=== PATIENT | male | born 1995 | race Caucasian/White ===

== ENCOUNTER 2019-05-28 13:11 | Inpatient (IN) | payer BC, OTHER ==
--- NOTE | 2019-05-28 13:19 | PDOC ---
Rapid Medical Evaluation Chief Complaint: Respiratory Time Seen by Provider: 05/28/19 13:18 Medical Evaluation: Allergies Allergy/AdvReac Type Severity Reaction Status Date / Time amoxicillin [Amoxicillin] Allergy Unknown Verified 09/07/15 11:10 Penicillins Allergy Unknown Verified 06/14/15 10:17 05/28/19 13:18 I have performed a brief in-person evaluation of this patient. The patient presents with a chief complaint of: fever and sacral wound Pertinent physical exam findings: deferred I have ordered the following: sepsis w/u The patient will proceed to the ED for further evaluation. Discharge Disposition - Diagnosis Decubital ulcer - Referrals - Patient Instructions - Post Discharge Activity
[2019-05-28 14:09] LABS: BASO % 0.4 % (0-2.0); EOS % 1.4 % (0-4.5); HEMATOCRIT 29.9 % (35.4-49); HEMOGLOBIN 9.8 GM/dL (11.7-16.9); LYMPH % 12.5 % (8-40); MCH 24.1 pg (25.7-33.7); MCHC 32.8 g/dl (32.0-35.9); MEAN CELL VOLUME 73.4 fl (80-96); MEAN PLT VOLUME 7.3 fl (7.5-11.1); MONO % 7.3 % (3.8-10.2); NEUT % 78.4 % (42.8-82.8); PLATELET COUNT 557 K/MM3 (134-434); RBC 4.07 M/mm3 (4.00-5.60); RDW 16.5 % (11.9-15.9); WHITE BLOOD COUNT 13.4 K/mm3 (4.0-10.0)
[2019-05-28 14:36] LABS: INR 1.24 (0.83-1.09); PROTHROMBIN TIME (PATIENT) 14.7 SEC (9.7-13.0)
[2019-05-28 14:39] LABS: ACTIVATED PTT 37.8 SECONDS (25.2-36.5); ALBUMIN 2.7 g/dl (3.4-5.0); ALK PHOS 79 U/L (45-117); ANION GAP 12 MMOL/L (8-16); BILIRUBIN,TOTAL 0.6 mg/dL (0.2-1); CALCIUM 8.3 mg/dL (8.5-10.1); CHLORIDE 96 mmol/L (98-107); CO2 26 mmol/L (21-32); CREATININE 0.5 mg/dL (0.55-1.3); GLUCOSE,RANDOM 84 mg/dL (74-106); POTASSIUM 3.8 mmol/L (3.5-5.1); SGOT/AST 15 U/L (15-37); SGPT/ALT 11 U/L (13-61); SODIUM 135 mmol/L (136-145)
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
[2019-05-28] MEDS ORDERED: ACETAMINOPHEN 1000 MG/100 ML VIAL (NON FORMULARY) IVPB ONE (15:15)
[2019-05-28] MEDS ORDERED: LACTATED RINGERS SOLUTION 1000 ML INFUS.BAG IV ONE (15:15)
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
[2019-05-28] MEDS ORDERED: ACETAMINOPHEN INJECTION 100 ML IVPB ONE (15:35)
[2019-05-28] MEDS ORDERED: VANCOMYCIN 1 GRAM (PRE-DOCKED) 1,000 MG/250 ML BAG IVPB ONE ×2 (16:18→17:18)
[2019-05-28] MEDS ORDERED: AZTREONAM 1 GM in DEXTROSE 5%-WATER - 50 ML IVPB ONE (16:18)
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
[2019-05-28 16:58] LABS: EPI CELLS 17.5 /HPF (0-5/HPF); HYALINE CASTS 172 /lpf (0-8); PH,URINE >= 9.0 (5.0-8.0); URINE APPEARANCE TURBID; URINE BACTERIA 5240.1 /hpf (NEGATIVE); URINE BILIRUBIN NEGATIVE (NEGATIVE); URINE COLOR YELLOW; URINE GLUCOSE (UA) NEGATIVE (NEGATIVE); URINE KETONE NEGATIVE (NEGATIVE); URINE LEUK ESTERASE TRACE (NEGATIVE); URINE NITRITE NEGATIVE (NEGATIVE); URINE PROTEIN 1+ (NEGATIVE); URINE RBC 10 /hpf (0-4); URINE UROBILINOGEN 4.0 E.U/dl mg/dL (0.2-1.0); URINE WBC 6 /hpf (0-5)
[2019-05-28] MEDS: SODIUM CHLORIDE 1,000 ML IV SCH (17:12)
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
[2019-05-28 17:58] LABS: URINE CRYSTALS AMORPHOUS PHOSPHATES /hpf
[2019-05-28] MEDS ORDERED: oxyCODONE HCL 5 MG TABLET PO ONE (21:04)
[2019-05-28] MEDS: ACETAMINOPHEN 325 MG TABLET (FP) PO PRN (21:33)
[2019-05-28] MEDS: HEPARIN NA (PORCINE) 5,000 UNITS/ML 1ML VIAL SQ SCH (21:38)
[2019-05-29] MEDS ORDERED: DEXTROSE 5%-WATER - 50 ML IVPB ONE ×3 (01:27→21:45)
[2019-05-29] MEDS ORDERED: AZTREONAM 1 GM VIAL (RESTRICTED TO ID) ONE ×3 (01:27→21:45)
[2019-05-29] MEDS: AZTREONAM 1 GM in DEXTROSE 5%-WATER - 50 ML IVPB SCH ×2 (01:37→10:45)
[2019-05-29] MEDS: VANCOMYCIN 1 GRAM (PRE-DOCKED) 1,000 MG/250 ML BAG IVPB SCH ×2 (05:51→23:05)
[2019-05-29] MEDS: SODIUM CHLORIDE 1,000 ML IV SCH ×2 (05:54→16:52)
[2019-05-29] MEDS: FERROUS SO4 325 MG TABLET (FP) PO SCH ×3 (09:07→18:23)
--- NOTE | 2019-05-29 09:16 | PN ---
Progress Note, Physician Chief Complaint: AWAKE ALERT EVENTS AND NOTES REVIEWED - Current Medication List Current Medications: Active Medications Acetaminophen (Tylenol -) 650 mg PO Q6H PRN PRN Reason: FEVER Last Admin: 05/28/19 21:33 Dose: 650 mg Collagenase (Santyl -) 1 applic TP DAILY [facility]; Protocol Ferrous Sulfate (Feosol -) 325 mg PO BIDWM [facility] Last Admin: 05/29/19 09:07 Dose: 325 mg Heparin Sodium (Porcine) (Heparin -) 5,000 unit SQ BID [facility] Last Admin: 05/28/19 21:38 Dose: 5,000 unit Sodium Chloride (Normal Saline -) 1,000 mls @ 75 mls/hr IV ASDIR [facility] Last Admin: 05/29/19 05:54 Dose: 75 mls/hr Aztreonam 1 gm/ Dextrose 50 mls @ 100 mls/hr IVPB Q8H-IV [facility]; Protocol Last Admin: 05/29/19 01:37 Dose: 100 mls/hr Metronidazole (Flagyl 500mg Premixed Ivpb -) 500 mg in 100 mls @ 100 mls/hr IVPB Q8H-IV [facility] Last Admin: 05/29/19 09:08 Dose: 100 mls/hr Vancomycin HCl (Vancomycin (Pre-Docked)) 1,000 mg in 250 mls @ 166.667 mls/hr IVPB Q12H [facility]; Protocol Last Admin: 05/29/19 05:51 Dose: 166.667 mls/hr - Objective Vital Signs: Vital Signs Temperature 97.2 F L 05/29/19 06:00 Pulse Rate 50 L 05/29/19 06:00 Respiratory Rate 18 05/29/19 06:00 Blood Pressure 96/56 L 05/29/19 06:00 O2 Sat by Pulse Oximetry (%) 100 05/28/19 22:00 Constitutional: Yes: Mild Distress Cardiovascular: Yes: Regular Rate and Rhythm Respiratory: Yes: WNL Gastrointestinal: Yes: WNL Genitourinary: Yes: Other Musculoskeletal: Yes: Muscle Weakness Extremities: Yes: Other Edema: No Integumentary: Yes: Pressure Ulcer, Other (MULTIPLE ULCERS SACRAL AND RIGHT LOWER EXTREMITY COVERED WITH DRESSING) Neurological: Yes: Paresthesia, Pre-Existing Deficit, Weakness ...Motor Strength: LLE, RLE Psychiatric: Yes: Other Labs: CBC, BMP 05/28/19 13:50 05/28/19 13:50 INR, PTT INR 1.24 (0.83-1.09) H 05/28/19 13:50 Problem List - Problems (1) Decubital ulcer Code(s): L89.90 - PRESSURE ULCER OF UNSPECIFIED SITE, UNSPECIFIED STAGE Qualifiers: Pressure injury location: unspecified location Pressure injury stage: unspecified pressure injury stage Qualified Code(s): L89.90 - Pressure ulcer of unspecified site, unspecified stage (2) Paraplegia Code(s): G82.20 - PARAPLEGIA, UNSPECIFIED Assessment/Plan FAILED ON OUTPATIENT WOUND CARE ON IV ABX WILL NEED WOUND CARE AND VASC SX EVAL OPTIMIZE NUTRITION FOR BETTER WOUND HEALING OFFLOADING WITH PILLOWS
[2019-05-29 09:31] LABS: BASO % 0.8 % (0-2.0); EOS % 4.7 % (0-4.5); HEMATOCRIT 29.3 % (35.4-49); HEMOGLOBIN 9.3 GM/dL (11.7-16.9); LYMPH % 17.1 % (8-40); MCH 23.8 pg (25.7-33.7); MCHC 31.9 g/dl (32.0-35.9); MEAN CELL VOLUME 74.7 fl (80-96); MEAN PLT VOLUME 7.8 fl (7.5-11.1); MONO % 7.4 % (3.8-10.2); PLATELET COUNT 551 K/MM3 (134-434); RBC 3.92 M/mm3 (4.00-5.60); RDW 16.2 % (11.9-15.9); WHITE BLOOD COUNT 7.6 K/mm3 (4.0-10.0)
[2019-05-29 10:01] LABS: ALBUMIN 2.3 g/dl (3.4-5.0); BILIRUBIN,TOTAL 0.3 mg/dL (0.2-1); BLOOD UREA NITROGEN 7.3 mg/dL (7-18); CALCIUM 8.3 mg/dL (8.5-10.1); CREATININE 0.4 mg/dL (0.55-1.3); MAGNESIUM 2.2 mg/dL (1.8-2.4); POTASSIUM 3.8 mmol/L (3.5-5.1); TOT PROT 6.3 g/dl (6.4-8.2)
--- NOTE | 2019-05-29 10:06 | PN ---
Progress Note (short form) - Note Progress Note: ID consult dictated afebrile today sacral wounds stage four but clean no drainage, no cellulitis, + drainage from right heel ulcer- eschar removed at wound care yesterday a/p fevers paraplegia ?infected wounds no recent antibiotics pen allergy noted swelling per grandmother as baby started on vanco/azactam will add flagyl sacral ulcers appear clean sugery to evaluate heel ulcer f/u esr/crp
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
[2019-05-29] MEDS: HEPARIN NA (PORCINE) 5,000 UNITS/ML 1ML VIAL SQ SCH ×2 (10:44→21:49)
[2019-05-29] MEDS ORDERED: ACETAMINOPHEN 1000 MG/100 ML VIAL (NON FORMULARY) IVPB PRN (11:15)
[2019-05-29] MEDS: COLLAGENASE CLOSTRIDIUM HIST. 30 GRAMS TUBE TP SCH (11:41)
--- NOTE | 2019-05-29 14:12 | EKG ---
Test Reason : Blood Pressure : / mmHG Vent. Rate : 101 BPM Atrial Rate : 101 BPM P-R Int : 140 ms QRS Dur : 102 ms QT Int : 326 ms P-R-T Axes : 066 007 037 degrees QTc Int : 422 ms SINUS TACHYCARDIA RIGHT BUNDLE BRANCH BLOCK NONSPECIFIC T WAVE ABNORMALITY ABNORMAL ECG WHEN COMPARED WITH ECG OF 07-SEP-2015 12:16, NO SIGNIFICANT CHANGE WAS FOUND Confirmed by TO GAMBOA MD ([id number]) on 05/29/2019 2:12:03 PM Referred By: Confirmed By:TO GAMBOA MD
[2019-05-29 14:41] VITALS: BMI 18.4
[2019-05-29] MEDS: oxyCODONE HCL 5 MG TABLET PO PRN ×2 (15:26→23:41)
[2019-05-29] MEDS ORDERED: FERRIC CARBOXYMALTOSE 750 MG in SODIUM CHLORIDE 250 ML IVPB ONE (15:30)
--- NOTE | 2019-05-29 16:41 | PN ---
Progress Note (short form) - Note Progress Note: VAscular Surgery Pt seen and examined. Right heel ulcer dressing removed. Wound probes to bone. And is painful. Pt has palpable DP and PT pulses. Will get MRI of right foot to rule out osteo. Geo Mcdonnell DO
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
[2019-05-29] MEDS: ACETAMINOPHEN 325 MG TABLET (FP) PO PRN (23:41)
[2019-05-30] MEDS: MELATONIN 1 MG TABLET PO SCH ×3 (00:25→21:30)
[2019-05-30] MEDS: AZTREONAM 1 GM in DEXTROSE 5%-WATER - 50 ML IVPB SCH ×4 (01:08→17:02)
[2019-05-30] MEDS ORDERED: DEXTROSE 5%-WATER - 50 ML IVPB ONE ×3 (02:28→16:50)
[2019-05-30] MEDS ORDERED: AZTREONAM 1 GM VIAL (RESTRICTED TO ID) ONE ×3 (02:28→16:50)
[2019-05-30] MEDS ORDERED: ONDANSETRON *ODT* 4 MG TABLET SL ONE (03:55)
[2019-05-30] MEDS: VANCOMYCIN 1 GRAM (PRE-DOCKED) 1,000 MG/250 ML BAG IVPB SCH ×2 (05:41→17:31)
[2019-05-30] MEDS: ONDANSETRON 4 MG/2 ML VIAL IVPB PRN ×2 (05:41→17:28)
[2019-05-30 08:08] LABS: HEMATOCRIT 29.2 % (35.4-49); HEMOGLOBIN 9.5 GM/dL (11.7-16.9); MCH 24.3 pg (25.7-33.7); MCHC 32.6 g/dl (32.0-35.9); MEAN CELL VOLUME 74.5 fl (80-96); MEAN PLT VOLUME 7.3 fl (7.5-11.1); PLATELET COUNT 548 K/MM3 (134-434); RBC 3.92 M/mm3 (4.00-5.60); RDW 16.5 % (11.9-15.9); WHITE BLOOD COUNT 7.1 K/mm3 (4.0-10.0)
[2019-05-30 08:25] LABS: BLOOD UREA NITROGEN 4.5 mg/dL (7-18); CALCIUM 8.4 mg/dL (8.5-10.1); CREATININE 0.5 mg/dL (0.55-1.3); MAGNESIUM 2.1 mg/dL (1.8-2.4); POTASSIUM 3.4 mmol/L (3.5-5.1)
[2019-05-30] MEDS: FERROUS SO4 325 MG TABLET (FP) PO SCH ×2 (08:34→17:02)
[2019-05-30] MEDS: HEPARIN NA (PORCINE) 5,000 UNITS/ML 1ML VIAL SQ SCH ×2 (09:01→21:24)
[2019-05-30] MEDS: COLLAGENASE CLOSTRIDIUM HIST. 30 GRAMS TUBE TP SCH (10:10)
[2019-05-30] MEDS: oxyCODONE HCL 5 MG TABLET PO PRN (10:13)
[2019-05-30] MEDS: SODIUM CHLORIDE 1,000 ML IV SCH (10:29)
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
[2019-05-30] MEDS ORDERED: POTASSIUM CHLORIDE ORAL LIQUID 20 MEQ/15 ML PO ONE (14:48)
[2019-05-31] MEDS ORDERED: DEXTROSE 5%-WATER - 50 ML IVPB ONE ×3 (01:00→17:18)
[2019-05-31] MEDS ORDERED: AZTREONAM 1 GM VIAL (RESTRICTED TO ID) ONE ×3 (01:00→17:17)
[2019-05-31] MEDS: AZTREONAM 1 GM in DEXTROSE 5%-WATER - 50 ML IVPB SCH ×3 (01:24→17:22)
[2019-05-31] MEDS: ONDANSETRON 4 MG/2 ML VIAL IVPB PRN (04:33)
[2019-05-31] MEDS: VANCOMYCIN 1 GRAM (PRE-DOCKED) 1,000 MG/250 ML BAG IVPB SCH ×3 (05:18→22:32)
[2019-05-31] MEDS: COLLAGENASE CLOSTRIDIUM HIST. 30 GRAMS TUBE TP SCH (09:18)
[2019-05-31] MEDS: FERROUS SO4 325 MG TABLET (FP) PO SCH (09:18)
[2019-05-31] MEDS: HEPARIN NA (PORCINE) 5,000 UNITS/ML 1ML VIAL SQ SCH ×2 (09:18→21:22)
[2019-05-31 09:38] LABS: BASO % 0.6 % (0-2.0); EOS % 3.2 % (0-4.5); HEMATOCRIT 32.1 % (35.4-49); HEMOGLOBIN 10.4 GM/dL (11.7-16.9); LYMPH % 21.7 % (8-40); MCH 24.2 pg (25.7-33.7); MCHC 32.5 g/dl (32.0-35.9); MEAN CELL VOLUME 74.5 fl (80-96); MEAN PLT VOLUME 7.3 fl (7.5-11.1); MONO % 5.6 % (3.8-10.2); NEUT % 68.9 % (42.8-82.8); PLATELET COUNT 665 K/MM3 (134-434); RDW 16.6 % (11.9-15.9); WHITE BLOOD COUNT 6.9 K/mm3 (4.0-10.0)
[2019-05-31 09:56] LABS: CALCIUM 8.6 mg/dL (8.5-10.1); CREATININE 0.5 mg/dL (0.55-1.3); POTASSIUM 3.8 mmol/L (3.5-5.1)
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
[2019-05-31 12:27] LABS: ALBUMIN 2.4 g/dl (3.4-5.0); BILIRUBIN,DIRECT 0.1 mg/dL (0.0-0.2); BILIRUBIN,TOTAL 0.3 mg/dL (0.2-1); TOT PROT 6.6 g/dl (6.4-8.2)
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
[2019-05-31] MEDS ORDERED: IRON SUCROSE INJECTION 100 MG in SODIUM CHLORIDE 95 ML IVPB ONE (15:17)
[2019-05-31] MEDS: METOCLOPRAMIDE HCL INJECTION 10 MG/2 ML VIAL IVPUSH SCH ×2 (16:46→20:50)
[2019-05-31] MEDS: MELATONIN 1 MG TABLET PO SCH (21:22)
[2019-06-01] MEDS ORDERED: AZTREONAM 1 GM VIAL (RESTRICTED TO ID) ONE (00:36)
[2019-06-01] MEDS ORDERED: DEXTROSE 5%-WATER - 50 ML IVPB ONE (00:37)
[2019-06-01] MEDS: AZTREONAM 1 GM in DEXTROSE 5%-WATER - 50 ML IVPB SCH ×2 (02:37→11:44)
[2019-06-01] MEDS: METOCLOPRAMIDE HCL INJECTION 10 MG/2 ML VIAL IVPUSH SCH ×5 (02:45→21:13)
--- NOTE | 2019-06-01 07:36 | PN.GI ---
GI Progress Note Subjective: Patient continue to have periods of nausea with a "gagging" sensation, but denies vomiting or dysphagia. Denies abdominal pain, diarrhea, rectal bleeding , blood in stool. He is tolerating clear liquid diet. Pending this morning Hg level, on 05/31/19 Hg 10.4. - Objective Vital Signs: Vital Signs Temperature 97.8 F 06/01/19 05:33 Pulse Rate 67 06/01/19 05:33 Respiratory Rate 20 06/01/19 05:33 Blood Pressure 99/53 L 06/01/19 05:33 O2 Sat by Pulse Oximetry (%) 95 05/31/19 22:00 Constitutional: No Distress, Calm Eyes: Yes: Conjunctiva Clear HENT: Yes: Atraumatic Cardiovascular: Yes: Regular Rate and Rhythm Respiratory: Yes: Regular, CTA Bilaterally Gastrointestinal Inspection: Yes: WNL. No: Ascites, Distention, Hernia, Scars, Other ...Auscultate: Yes: Normoactive Bowel Sounds. No: Hyperactive Bowel Sounds, Hypoactive Bowel Sounds, No Bowel Sounds, Other ...Palpate: Yes: Soft, Tenderness (RLQ). No: Firm/Rigid, Guarding, Hepatomegaly , Mass, Pulsatile Mass, Splenomegaly, Tenderness, Epigastium, Tenderness, Rebound, Other ...Percussion: Yes: Tympanitic. No: Dullness, Fluid Wave, Other Neurological: Yes: Alert, Other (paraplegia) Psychiatric: Yes: Alert, Oriented Labs: INR, PTT INR 1.24 (0.83-1.09) H 05/28/19 13:50 Problem List - Problems (1) Anemia Assessment/Plan: >pending this AM Hg result >monitor Hg >transfuse for Hg <8.0 >hematology consult Code(s): D64.9 - ANEMIA, UNSPECIFIED (2) Postprandial vomiting Assessment/Plan: >clear liquid diet >IV Reglen q6h >Zofran IV >Upper GI Series >FUA ordered R/O fecal impaction Code(s): R11.10 - VOMITING, UNSPECIFIED
[2019-06-01 07:58] LABS: BASO % 0.6 % (0-2.0); EOS % 2.1 % (0-4.5); HEMATOCRIT 32.7 % (35.4-49); HEMOGLOBIN 10.6 GM/dL (11.7-16.9); LYMPH % 17.9 % (8-40); MCH 24.3 pg (25.7-33.7); MCHC 32.5 g/dl (32.0-35.9); MEAN CELL VOLUME 74.8 fl (80-96); MEAN PLT VOLUME 7.3 fl (7.5-11.1); MONO % 7.9 % (3.8-10.2); NEUT % 71.5 % (42.8-82.8); PLATELET COUNT 621 K/MM3 (134-434); RBC 4.37 M/mm3 (4.00-5.60); RDW 16.9 % (11.9-15.9); WHITE BLOOD COUNT 9.4 K/mm3 (4.0-10.0)
[2019-06-01 08:03] LABS: ALBUMIN 2.4 g/dl (3.4-5.0); BILIRUBIN,TOTAL 0.5 mg/dL (0.2-1); BLOOD UREA NITROGEN 3.8 mg/dL (7-18); CALCIUM 8.7 mg/dL (8.5-10.1); CREATININE 0.5 mg/dL (0.55-1.3); POTASSIUM 4.3 mmol/L (3.5-5.1); TOT PROT 6.5 g/dl (6.4-8.2)
[2019-06-01] MEDS ORDERED: ONDANSETRON 4 MG/2 ML VIAL IVPB STA (08:56)
[2019-06-01 11:00] LABS: ANISOCYTOSIS 1+
--- NOTE | 2019-06-01 11:11 | PN ---
Progress Note, Physician Chief Complaint: R heel Ulcer Nausea History of Present Illness: Previous notes and events reviewed awake and alert NAD patient has upper GI series MRI results reviewed - Current Medication List Current Medications: Active Medications Acetaminophen (Tylenol -) 650 mg PO Q6H PRN PRN Reason: FEVER Last Admin: 05/29/19 23:41 Dose: 650 mg Acetaminophen (Ofirmev Injection -) 1,000 mg IVPB Q6H PRN PRN Reason: PAIN 5-10 Last Admin: 05/29/19 12:00 Dose: 1,000 mg Collagenase (Santyl -) 1 applic TP DAILY YULISSA; Protocol Last Admin: 05/31/19 09:18 Dose: 1 applic Heparin Sodium (Porcine) (Heparin -) 5,000 unit SQ BID YULISSA Last Admin: 05/31/19 21:22 Dose: 5,000 unit Melatonin (Melatonin) 3 mg PO HS YULISSA Last Admin: 05/31/19 21:22 Dose: Not Given Metoclopramide HCl (Reglan Injection -) 10 mg IVPUSH Q6H-IV YULISSA Last Admin: 06/01/19 02:45 Dose: 10 mg Ondansetron HCl (Zofran Injection) 8 mg IVPB Q6H PRN PRN Reason: NAUSEA Last Admin: 05/31/19 04:33 Dose: 8 mg Oxycodone HCl (Roxicodone -) 5 mg PO Q6H PRN PRN Reason: PAIN 6-10 Last Admin: 05/30/19 10:13 Dose: 5 mg - Objective Vital Signs: Vital Signs Temperature 97.8 F 06/01/19 05:33 Pulse Rate 67 06/01/19 05:33 Respiratory Rate 20 06/01/19 05:33 Blood Pressure 99/53 L 06/01/19 05:33 O2 Sat by Pulse Oximetry (%) 95 05/31/19 22:00 Microbiology 05/28/19 13:50 Blood - Peripheral Venous Blood Culture - Preliminary NO GROWTH OBTAINED AFTER 72 HOURS, INCUBATION TO CONTINUE FOR 2 DAYS. 05/28/19 13:50 Blood - Peripheral Venous Blood Culture - Preliminary NO GROWTH OBTAINED AFTER 72 HOURS, INCUBATION TO CONTINUE FOR 2 DAYS. 05/28/19 17:00 Buttock - Right Gram Stain - Final 05/28/19 17:00 Buttock - Right Wound Culture - Final Proteus Mirabilis Beta Hem Streptococcus Group C 05/28/19 15:33 Urine - Urine Prabhakar Urine Culture - Final Citrobacter Farmeri Morganella Morganii Constitutional: Yes: No Distress, Calm Eyes: Yes: Conjunctiva Clear HENT: Yes: Atraumatic Cardiovascular: Yes: Regular Rate and Rhythm Respiratory: Yes: Regular, CTA Bilaterally Gastrointestinal: Yes: Normal Bowel Sounds, Soft Genitourinary: Yes: Incontinence Musculoskeletal: Yes: Muscle Weakness Extremities: Yes: WNL Edema: No Wound/Incision: Yes: Dressing Dry and Intact Neurological: Yes: Alert, Pre-Existing Deficit Psychiatric: Yes: Alert Labs: CBC, BMP 06/01/19 06:45 06/01/19 06:45 INR, PTT INR 1.24 (0.83-1.09) H 05/28/19 13:50 Microbiology 05/28/19 13:50 Blood - Peripheral Venous Blood Culture - Preliminary NO GROWTH OBTAINED AFTER 72 HOURS, INCUBATION TO CONTINUE FOR 2 DAYS. 05/28/19 13:50 Blood - Peripheral Venous Blood Culture - Preliminary NO GROWTH OBTAINED AFTER 72 HOURS, INCUBATION TO CONTINUE FOR 2 DAYS. 05/28/19 17:00 Buttock - Right Gram Stain - Final 05/28/19 17:00 Buttock - Right Wound Culture - Final Proteus Mirabilis Beta Hem Streptococcus Group C 05/28/19 15:33 Urine - Urine Prabhakar Urine Culture - Final Citrobacter Farmeri Morganella Morganii - ....Imaging MRI: Report Reviewed Problem List - Problems (1) Ulcer of right heel Assessment/Plan: -MRI shows osteomyelitis of the posterior aspect of calcaneus, there is cellulitis and no soft tissue abscess -ID on board -will need PICC line placement for fci antibiotic therapy Code(s): L97.419 - NON-PRS CHR ULCER OF RIGHT HEEL AND MIDFOOT W UNSP SEVERT (2) Anemia Assessment/Plan: -Hg 10.6 -monitor Hg daily -transfuse for Hg <8.0 -GI and Hematology consult Code(s): D64.9 - ANEMIA, UNSPECIFIED (3) Decubital ulcer Assessment/Plan: -ID on board -wound culture positive -no leukocytosis -afebrile -Santyl -dressing change daily and as needed Code(s): L89.90 - PRESSURE ULCER OF UNSPECIFIED SITE, UNSPECIFIED STAGE Qualifiers: Pressure injury location: unspecified location Pressure injury stage: unspecified pressure injury stage Qualified Code(s): L89.90 - Pressure ulcer of unspecified site, unspecified stage (4) Paraplegia Assessment/Plan: -PT -fall precaution Code(s): G82.20 - PARAPLEGIA, UNSPECIFIED (5) UTI (urinary tract infection), bacterial Assessment/Plan: -no leukocytosis -afebrile -UC positive -ID on board Code(s): N39.0 - URINARY TRACT INFECTION, SITE NOT SPECIFIED; A49.9 - BACTERIAL INFECTION, UNSPECIFIED (6) Postprandial vomiting Assessment/Plan: -IV Zofran and Reglan -Upper GI Series done Code(s): R11.10 - VOMITING, UNSPECIFIED Assessment/Plan see problem list dvt ppx home care vs SNF for discharge
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
[2019-06-01] MEDS: VANCOMYCIN 1 GRAM (PRE-DOCKED) 1,000 MG/250 ML BAG IVPB SCH (11:44)
[2019-06-01] MEDS: HEPARIN NA (PORCINE) 5,000 UNITS/ML 1ML VIAL SQ SCH ×2 (11:45→21:12)
[2019-06-01] MEDS: COLLAGENASE CLOSTRIDIUM HIST. 30 GRAMS TUBE TP SCH (13:00)
--- NOTE | 2019-06-01 13:13 | PN ---
Progress Note (short form) - Note Progress Note: nausea and vomiting this weekend unsure when he last threw up +BM yesterday was not taking iron at home was taking aleve and motrin prn- not daily Vital Signs Period Temp Pulse Resp BP Sys/Casas Pulse Ox Last 24 Hr 97.8 F-97.8 F 53-67 20-20 99-110/53-71 95 cor-rrr lungs clear abd soft MRI with osteomyelitis of the heel CBC, BMP 06/01/19 06:45 06/01/19 06:45 Microbiology 05/28/19 13:50 Blood - Peripheral Venous Blood Culture - Preliminary NO GROWTH OBTAINED AFTER 72 HOURS, INCUBATION TO CONTINUE FOR 2 DAYS. 05/28/19 13:50 Blood - Peripheral Venous Blood Culture - Preliminary NO GROWTH OBTAINED AFTER 72 HOURS, INCUBATION TO CONTINUE FOR 2 DAYS. 05/28/19 17:00 Buttock - Right Gram Stain - Final 05/28/19 17:00 Buttock - Right Wound Culture - Final Proteus Mirabilis Beta Hem Streptococcus Group C 05/28/19 15:33 Urine - Urine Prabhakar Urine Culture - Final Citrobacter Farmeri Morganella Morganii a/p fevers resolved paraplegia pen allergy noted will d/c antibiotics await podiatry consult- ?debridement, ?cultures-?biopsy microcytic anemia-denies rectal bleeding, occasional bleeding (rare) from his ulcers GI g/u now with nausea and vomiting ?secondary to iron Laboratory Tests 05/29/19 05/29/19 08:25 08:25 ESR 102 H C-Reactive Protein 16.3 H
--- NOTE | 2019-06-01 16:31 | PN ---
Progress Note (short form) - Note Progress Note: CONSULT DICTATED 24 year old with hypochromic, microcytic anemia. Fe++ studies with low serum Fe++ and low TIBC compatible with chronic disease. Has decubiti and osteomyelitis of right heel. Elevated ESR of 102. Some intolerance to oral iron therapy. Patient is a mixture of black and . Latter origin from [facility] and [facility]. Will therefore obtain hemoglobin electrophoresis. Picture compatible with chronic disease anemia. To check Retic, LDH, Hb electrophoresis .
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
[2019-06-01] MEDS: MELATONIN 1 MG TABLET PO SCH (21:14)
[2019-06-02] MEDS: METOCLOPRAMIDE HCL INJECTION 10 MG/2 ML VIAL IVPUSH SCH (02:43)
--- NOTE | 2019-06-02 08:39 | PN.GI ---
GI Progress Note Subjective: Patient continues to experience intermittent episodes of nausea and gagging. GI series done and shows no evidence of abnormal dilatation of esophagus, no evidence of gastric outlet obstruction, normal duodenal sweep, normal mucosal pattern of opacified small bowel. Denies dysphagia, vomiting, abdominal pain or diarrhea. Denies rectal bleeding or melena. - Objective Vital Signs: Vital Signs Temperature 98.5 F 06/02/19 06:21 Pulse Rate 64 06/02/19 06:21 Respiratory Rate 06/02/19 06:21 Blood Pressure 121/58 L 06/02/19 06:21 O2 Sat by Pulse Oximetry (%) 96 06/01/19 21:00 Constitutional: No Distress, Calm Eyes: Yes: Conjunctiva Clear HENT: Yes: Atraumatic Cardiovascular: Yes: Regular Rate and Rhythm Respiratory: Yes: Regular, CTA Bilaterally Gastrointestinal Inspection: Yes: WNL. No: Ascites, Distention, Hernia, Scars, Other ...Auscultate: Yes: Normoactive Bowel Sounds. No: Hyperactive Bowel Sounds, Hypoactive Bowel Sounds, No Bowel Sounds, Other ...Palpate: Yes: Soft, Tenderness (rlq). No: Firm/Rigid, Guarding, Hepatomegaly , Mass, Pulsatile Mass, Splenomegaly, Tenderness, Epigastium, Tenderness, Rebound, Other ...Percussion: Yes: Tympanitic. No: Dullness, Fluid Wave, Other Neurological: Yes: Alert, Pre-Existing Deficit Psychiatric: Yes: Alert, Oriented Labs: CBC, BMP 06/01/19 06:45 06/01/19 06:45 INR, PTT INR 1.24 (0.83-1.09) H 05/28/19 13:50 Active Medications Generic Name Dose Route Start Last Admin Trade Name Freq PRN Reason Stop Dose Admin Acetaminophen 650 mg 05/28/19 16:50 05/29/19 23:41 Tylenol - PO 650 mg Q6H PRN Administration FEVER Acetaminophen 1,000 mg 05/29/19 11:15 05/29/19 12:00 Ofirmev Injection - IVPB 1,000 mg Q6H PRN Administration PAIN 5-10 Collagenase 1 applic 05/29/19 10:00 06/01/19 13:00 Santyl - TP 1 applic DAILY YULISSA Administration Protocol Heparin Sodium (Porcine) 5,000 unit 05/28/19 22:00 06/01/19 21:12 Heparin - SQ 5,000 unit BID [facility] Administration Melatonin 3 mg 05/30/19 00:30 06/01/19 21:14 Melatonin PO Not Given HS [facility] Metoclopramide HCl 5 mg 06/02/19 11:00 Reglan - PO TIDAC [facility] Ondansetron HCl 8 mg 05/30/19 04:49 05/31/19 04:33 Zofran Injection IVPB 8 mg Q6H PRN Administration NAUSEA Pantoprazole Sodium 40 mg 06/02/19 10:00 Protonix - PO DAILY [facility] Problem List - Problems (1) Anemia Assessment/Plan: >secondary to decubiti >monitor Hg >transfuse for Hg <8.0 >hematology consult Code(s): D64.9 - ANEMIA, UNSPECIFIED (2) Postprandial vomiting Assessment/Plan: >diet advanced >Reglan 5mg TIDAC >Pantoprazole >stool for H. Pylori Code(s): R11.10 - VOMITING, UNSPECIFIED
--- NOTE | 2019-06-02 08:50 | PN ---
Progress Note (short form) - Note Progress Note: No change compared to yesterdays progress note. Spoke w/ senior research manager and she informs that the patient is requesting to go to REHAB. Facility will need to be VAC compliant. Cont local wound care to buttock wounds as previously ordered. Podiatry consulted for possible biopsy. Most likely will nee PICC for intermediate manager IV ABX. Will cont to follow Problem List - Problems (1) Decubital ulcer Code(s): L89.90 - PRESSURE ULCER OF UNSPECIFIED SITE, UNSPECIFIED STAGE Qualifiers: Pressure injury location: unspecified location Pressure injury stage: unspecified pressure injury stage Qualified Code(s): L89.90 - Pressure ulcer of unspecified site, unspecified stage (2) Paraplegia Code(s): G82.20 - PARAPLEGIA, UNSPECIFIED (3) Neurogenic bladder Code(s): N31.9 - NEUROMUSCULAR DYSFUNCTION OF BLADDER, UNSPECIFIED
[2019-06-02 08:51] LABS: BASO % 0.4 % (0-2.0); HEMOGLOBIN 11.2 GM/dL (11.7-16.9); LYMPH % 18.5 % (8-40); MEAN CELL VOLUME 75.1 fl (80-96); MEAN PLT VOLUME 7.2 fl (7.5-11.1); MONO % 6.8 % (3.8-10.2); NEUT % 73.3 % (42.8-82.8); PLATELET COUNT 741 K/MM3 (134-434); RBC 4.67 M/mm3 (4.00-5.60); RETICULOCYTES 2.61 % (0.5-1.5); WHITE BLOOD COUNT 8.6 K/mm3 (4.0-10.0)
--- NOTE | 2019-06-02 09:09 | CONSULT ---
Consult Consult Specialty:: Podiatry Reason for Consultation:: Long toe nails bilateral feet - History of Present Illness Chief Complaint: elongated mycotic toe nails with subungual debris x 10 - History Source History Provided By: Medical Record - Past Medical History Renal/: Yes: Neurogenic Bladder Musculoskeletal: Yes: Paraplegia - Alcohol/Substance Use Hx Alcohol Use: No - Smoking History Smoking history: Current every day smoker Have you smoked in the past 12 months: Yes Aproximately how many cigarettes per day: 5 Home Medications - Allergies Allergies/Adverse Reactions: Allergies Allergy/AdvReac Type Severity Reaction Status Date / Time amoxicillin [Amoxicillin] Allergy Unknown Verified 05/28/19 13:20 Penicillins Allergy Unknown Verified 05/28/19 13:20 - Home Medications Home Medications: Ambulatory Orders NK [No Known Home Medication] 05/28/19 Family Disease History - Family Disease History Family Disease History: CA: Grandparent (unknown type), Other: Father (healthy) , Mother (healthy) Physical Exam Vital Signs: Vital Signs Temperature 98.5 F 06/02/19 06:21 Pulse Rate 64 06/02/19 06:21 Respiratory Rate 19 06/02/19 06:21 Blood Pressure 121/58 L 06/02/19 06:21 O2 Sat by Pulse Oximetry (%) 96 06/01/19 21:00 Extremities: Yes: Other (+elongated thickened toe nails x 10 with subungual debris, +inflammed nail beds, +distal seperation of nail from bed, +om right heel tx by ID and vascular at this time) Assessment/Plan Nails debrided x 10. Will follow heel wound if requested. Patient tolerated debridement well. Vascular also treating heel and sacral wound at this time.
[2019-06-02 09:22] LABS: ALBUMIN 2.9 g/dl (3.4-5.0); BILIRUBIN,TOTAL 0.4 mg/dL (0.2-1); BLOOD UREA NITROGEN 3.2 mg/dL (7-18); CALCIUM 8.9 mg/dL (8.5-10.1); CREATININE 0.5 mg/dL (0.55-1.3); POTASSIUM 4.5 mmol/L (3.5-5.1); TOT PROT 7.2 g/dl (6.4-8.2)
[2019-06-02] MEDS: PANTOPRAZOLE 40 MG TABLET (FP) PO SCH (09:31)
[2019-06-02] MEDS: HEPARIN NA (PORCINE) 5,000 UNITS/ML 1ML VIAL SQ SCH ×2 (09:31→22:43)
[2019-06-02] MEDS: COLLAGENASE CLOSTRIDIUM HIST. 30 GRAMS TUBE TP SCH (10:41)
[2019-06-02] MEDS: METOCLOPRAMIDE HCL 10 MG TABLET (FP) PO SCH ×2 (11:52→17:39)
[2019-06-02 12:35] LABS: ANISOCYTOSIS 1+; MACROCYTOSIS 0; PLATELET ESTIMATE INCREASED
--- NOTE | 2019-06-02 14:40 | PN ---
Progress Note, Physician Chief Complaint: R heel Ulcer Nausea History of Present Illness: Previous notes and events reviewed awake and alert NAD sts nausea is improving MRI positive for osteomyelitis - Current Medication List Current Medications: Active Medications Acetaminophen (Tylenol -) 650 mg PO Q6H PRN PRN Reason: FEVER Last Admin: 05/29/19 23:41 Dose: 650 mg Acetaminophen (Ofirmev Injection -) 1,000 mg IVPB Q6H PRN PRN Reason: PAIN 5-10 Last Admin: 05/29/19 12:00 Dose: 1,000 mg Collagenase (Santyl -) 1 applic TP DAILY [facility]; Protocol Last Admin: 06/01/19 13:00 Dose: 1 applic Heparin Sodium (Porcine) (Heparin -) 5,000 unit SQ BID [facility] Last Admin: 06/02/19 09:31 Dose: 5,000 unit Melatonin (Melatonin) 3 mg PO HS [facility] Last Admin: 06/01/19 21:14 Dose: Not Given Metoclopramide HCl (Reglan -) 5 mg PO TIDAC [facility] Last Admin: 06/02/19 11:52 Dose: 5 mg Ondansetron HCl (Zofran Injection) 8 mg IVPB Q6H PRN PRN Reason: NAUSEA Last Admin: 05/31/19 04:33 Dose: 8 mg Pantoprazole Sodium (Protonix -) 40 mg PO DAILY [facility] Last Admin: 06/02/19 09:31 Dose: 40 mg - Objective Vital Signs: Vital Signs Temperature 98.0 F 06/02/19 09:37 Pulse Rate 84 06/02/19 09:37 Respiratory Rate 18 06/02/19 09:37 Blood Pressure 125/63 06/02/19 09:37 O2 Sat by Pulse Oximetry (%) 96 06/02/19 09:00 Constitutional: Yes: No Distress, Calm Eyes: Yes: Conjunctiva Clear HENT: Yes: Atraumatic Cardiovascular: Yes: Regular Rate and Rhythm Respiratory: Yes: Regular, CTA Bilaterally Gastrointestinal: Yes: Normal Bowel Sounds, Soft Musculoskeletal: Yes: Muscle Weakness Extremities: Yes: WNL Edema: No Wound/Incision: Yes: Dressing Dry and Intact Neurological: Yes: Alert, Other (paraplegia) Psychiatric: Yes: Alert, Oriented Labs: CBC, BMP 06/02/19 08:20 06/02/19 08:20 INR, PTT INR 1.24 (0.83-1.09) H 09/05/19 13:50 Microbiology 05/28/19 13:50 Blood - Peripheral Venous Blood Culture - Final NO GROWTH AFTER 5 DAYS INCUBATION 05/28/19 13:50 Blood - Peripheral Venous Blood Culture - Final NO GROWTH AFTER 5 DAYS INCUBATION 05/28/19 17:00 Buttock - Right Gram Stain - Final 05/28/19 17:00 Buttock - Right Wound Culture - Final Proteus Mirabilis Beta Hem Streptococcus Group C 05/28/19 15:33 Urine - Urine Prabhakar Urine Culture - Final Citrobacter Farmeri Morganella Morganii Problem List - Problems (1) Ulcer of right heel Assessment/Plan: -MRI shows osteomyelitis of the posterior aspect of calcaneus, there is cellulitis and no soft tissue abscess -ID on board -will need PICC line placement for retirement antibiotic therapy -podiatry consult Code(s): L97.419 - NON-PRS CHR ULCER OF RIGHT HEEL AND MIDFOOT W UNSP SEVERT (2) Anemia Assessment/Plan: -Hg 11.2 -monitor Hg daily -transfuse for Hg <8.0 -GI and Hematology consult Code(s): D64.9 - ANEMIA, UNSPECIFIED (3) Decubital ulcer Assessment/Plan: -ID on board -wound culture positive -vascular on board -will need WOUND VAC on discharge -no leukocytosis -afebrile -Santyl -dressing change daily and as needed Code(s): L89.90 - PRESSURE ULCER OF UNSPECIFIED SITE, UNSPECIFIED STAGE Qualifiers: Pressure injury location: unspecified location Pressure injury stage: unspecified pressure injury stage Qualified Code(s): L89.90 - Pressure ulcer of unspecified site, unspecified stage (4) Paraplegia Assessment/Plan: -PT -fall precaution Code(s): G82.20 - PARAPLEGIA, UNSPECIFIED (5) UTI (urinary tract infection), bacterial Assessment/Plan: -no leukocytosis -afebrile -UC positive -ID on board Code(s): N39.0 - URINARY TRACT INFECTION, SITE NOT SPECIFIED; A49.9 - BACTERIAL INFECTION, UNSPECIFIED (6) Postprandial vomiting Assessment/Plan: -IV Zofran and Reglan TID AC -Upper GI Series done Code(s): R11.10 - VOMITING, UNSPECIFIED Assessment/Plan see problem list dvt ppx SNF for discharge
--- NOTE | 2019-06-02 15:09 | PN ---
Progress Note (short form) - Note Progress Note: nausea and vomiting have resolved Vital Signs Period Temp Pulse Resp BP Sys/Casas Pulse Ox Last 24 Hr 97.9 F-99.5 F 62-84 18-20 115-125/58-65 96-96 cor-rrr llungs clear abd soft,nt heel ulcer now clean, no drainage, no erythema MRI with osteomyelitis of the heel CBC, BMP 06/02/19 08:20 06/02/19 08:20 a/p osteomyelitis of the heel fevers resolved paraplegia pen allergy noted off antibioitics await podiatry consult- ?debridement, ?bone biopsy microcytic anemia-denies rectal bleeding, occasional bleeding (rare) from his ulcers GI and heme f/u noted repeat crp in am
[2019-06-02] MEDS ORDERED: PT OWN MED DRAWER 7, Y5N ONE (22:37)
[2019-06-02] MEDS: MELATONIN 1 MG TABLET PO SCH (22:43)
[2019-06-03] MEDS: METOCLOPRAMIDE HCL 10 MG TABLET (FP) PO SCH ×3 (06:13→16:40)
[2019-06-03 07:22] LABS: HEMATOCRIT 34.3 % (35.4-49); MCH 24.3 pg (25.7-33.7); MEAN PLT VOLUME 7.1 fl (7.5-11.1); PLATELET COUNT 666 K/MM3 (134-434); RBC 4.51 M/mm3 (4.00-5.60); RDW 17.1 % (11.9-15.9); WHITE BLOOD COUNT 9.5 K/mm3 (4.0-10.0)
[2019-06-03 07:50] LABS: ALBUMIN 2.7 g/dl (3.4-5.0); BILIRUBIN,TOTAL 0.2 mg/dL (0.2-1); CALCIUM 8.7 mg/dL (8.5-10.1); CREATININE 0.5 mg/dL (0.55-1.3); POTASSIUM 4.4 mmol/L (3.5-5.1); TOT PROT 6.7 g/dl (6.4-8.2)
--- NOTE | 2019-06-03 08:34 | PN ---
Progress Note (short form) - Note Progress Note: surgery Patient being followed for sacral decubitus seen at bedside with no new complaints. Patient denies any fever, CP, SOB, N/V/D. I have again stressed the benefit of the wound vac and possible poor outcomes without vac placement. He continues to be opposed to going home with a vac and VNS care, stating he will only agree to the vac placement if he gets approved for rehab placement. He is also scheduled to receive a Picc line for IV abx for his heel osteomeylitis. I spoke to the manager rn case who stated that the patient has been approved for [facility] and she will discuss placement plan with him today. If patient agrees, surgery team will place vac later today.
[2019-06-03] MEDS: PANTOPRAZOLE 40 MG TABLET (FP) PO SCH (10:26)
[2019-06-03] MEDS: COLLAGENASE CLOSTRIDIUM HIST. 30 GRAMS TUBE TP SCH (10:27)
[2019-06-03] MEDS: HEPARIN NA (PORCINE) 5,000 UNITS/ML 1ML VIAL SQ SCH ×2 (10:51→22:33)
--- NOTE | 2019-06-03 11:36 | PN ---
Progress Note (short form) - Note Progress Note: feels well Vital Signs Period Temp Pulse Resp BP Sys/Casas Pulse Ox Last 24 Hr 97.9 F-98.0 F 60-68 18-20 106-120/57-70 cor-rrr lungs clear buttock ulcers clean heel ulcer clean MRI with osteomyelitis of the heel CBC, BMP 06/03/19 06:30 06/03/19 06:30 Laboratory Tests 05/29/19 06/03/19 08:25 06:30 C-Reactive Protein 16.3 H 1.9 H a/p osteomyelitis of the heel fevers resolved paraplegia pen allergy noted off antibioitics await podiatry consult- ?debridement, ?bone biopsy before resuming antibiotics microcytic anemia-denies rectal bleeding, occasional bleeding (rare) from his ulcers GI and heme f/u noted
--- NOTE | 2019-06-03 12:55 | PN ---
Progress Note, Physician Chief Complaint: Oateomyelitis right heel. ID requesting Biopsy of bone right heel. - Current Medication List Current Medications: Active Medications Acetaminophen (Tylenol -) 650 mg PO Q6H PRN PRN Reason: FEVER Last Admin: 05/29/19 23:41 Dose: 650 mg Acetaminophen (Ofirmev Injection -) 1,000 mg IVPB Q6H PRN PRN Reason: PAIN 5-10 Last Admin: 05/29/19 12:00 Dose: 1,000 mg Collagenase (Santyl -) 1 applic TP DAILY YULISSA; Protocol Last Admin: 06/03/19 10:27 Dose: 1 applic Heparin Sodium (Porcine) (Heparin -) 5,000 unit SQ BID YULISSA Last Admin: 06/03/19 10:51 Dose: 5,000 unit Melatonin (Melatonin) 3 mg PO HS [facility] Last Admin: 06/02/19 22:43 Dose: 3 mg Metoclopramide HCl (Reglan -) 5 mg PO TIDAC [facility] Last Admin: 06/03/19 10:26 Dose: 5 mg Ondansetron HCl (Zofran Injection) 8 mg IVPB Q6H PRN PRN Reason: NAUSEA Last Admin: 05/31/19 04:33 Dose: 8 mg Pantoprazole Sodium (Protonix -) 40 mg PO DAILY [facility] Last Admin: 06/03/19 10:26 Dose: 40 mg - Objective Vital Signs: Vital Signs Temperature 98.0 F 06/03/19 05:44 Pulse Rate 68 06/03/19 05:44 Respiratory Rate 20 06/03/19 09:00 Blood Pressure 106/57 L 06/03/19 05:44 O2 Sat by Pulse Oximetry (%) 98 06/03/19 09:00 Extremities: Yes: Other (vsgi, +om right heel, +grade 3 wound right heel,) Labs: CBC, BMP 06/03/19 06:30 06/03/19 06:30 INR, PTT INR 1.24 (0.83-1.09) H 05/28/19 13:50 Assessment/Plan om right heel ID requesting bone biopsy for identification of bacteria. Will do in am bedside once supplies([employer] bone biopsy kit, lidocaine 1% plain with a 3cc syringe and 18guage draw up needle and 25guage 1.5 inch needle for injection ). Wound culture right heel today. Santyl to wound right heel. Will follow.
--- NOTE | 2019-06-03 14:19 | PN ---
Progress Note, Physician Chief Complaint: R heel Ulcer Nausea History of Present Illness: Previous notes and events reviewed awake and alert NAD denies nausea MRI positive for osteomyelitis - Current Medication List Current Medications: Active Medications Acetaminophen (Tylenol -) 650 mg PO Q6H PRN PRN Reason: FEVER Last Admin: 05/29/19 23:41 Dose: 650 mg Acetaminophen (Ofirmev Injection -) 1,000 mg IVPB Q6H PRN PRN Reason: PAIN 5-10 Last Admin: 05/29/19 12:00 Dose: 1,000 mg Collagenase (Santyl -) 1 applic TP DAILY [facility]; Protocol Last Admin: 06/03/19 10:27 Dose: 1 applic Heparin Sodium (Porcine) (Heparin -) 5,000 unit SQ BID [facility] Last Admin: 06/03/19 10:51 Dose: 5,000 unit Melatonin (Melatonin) 3 mg PO HS [facility] Last Admin: 06/02/19 22:43 Dose: 3 mg Metoclopramide HCl (Reglan -) 5 mg PO TIDAC [facility] Last Admin: 06/03/19 10:26 Dose: 5 mg Ondansetron HCl (Zofran Injection) 8 mg IVPB Q6H PRN PRN Reason: NAUSEA Last Admin: 05/31/19 04:33 Dose: 8 mg Pantoprazole Sodium (Protonix -) 40 mg PO DAILY [facility] Last Admin: 06/03/19 10:26 Dose: 40 mg - Objective Vital Signs: Vital Signs Temperature 98.5 F 06/03/19 13:38 Pulse Rate 62 06/03/19 13:38 Respiratory Rate 20 06/03/19 13:38 Blood Pressure 103/66 06/03/19 13:38 O2 Sat by Pulse Oximetry (%) 98 06/03/19 09:00 Constitutional: Yes: No Distress, Calm Eyes: Yes: Conjunctiva Clear HENT: Yes: Atraumatic Cardiovascular: Yes: Regular Rate and Rhythm Respiratory: Yes: Regular, CTA Bilaterally Gastrointestinal: Yes: Normal Bowel Sounds, Soft Genitourinary: Yes: Incontinence Musculoskeletal: Yes: Muscle Weakness Extremities: Yes: WNL Edema: No Wound/Incision: Yes: Dressing Dry and Intact Neurological: Yes: Alert, Oriented, Pre-Existing Deficit Psychiatric: Yes: Alert, Oriented Labs: CBC, BMP 06/03/19 06:30 06/03/19 06:30 INR, PTT INR 1.24 (0.83-1.09) H 05/28/19 13:50 Microbiology 05/28/19 13:50 Blood - Peripheral Venous Blood Culture - Final NO GROWTH AFTER 5 DAYS INCUBATION 05/28/19 13:50 Blood - Peripheral Venous Blood Culture - Final NO GROWTH AFTER 5 DAYS INCUBATION 05/28/19 17:00 Buttock - Right Gram Stain - Final 05/28/19 17:00 Buttock - Right Wound Culture - Final Proteus Mirabilis Beta Hem Streptococcus Group C 05/28/19 15:33 Urine - Urine Prabhakar Urine Culture - Final Citrobacter Farmeri Morganella Morganii Problem List - Problems (1) Ulcer of right heel Assessment/Plan: -MRI shows osteomyelitis of the posterior aspect of calcaneus, there is cellulitis and no soft tissue abscess -ID on board -will need PICC line placement for halfway antibiotic therapy -podiatry on board--will do biopsy for ID of bacteria for ABT use Code(s): L97.419 - NON-PRS CHR ULCER OF RIGHT HEEL AND MIDFOOT W UNSP SEVERT (2) Anemia Assessment/Plan: -Hg 11.0 -monitor Hg daily -transfuse for Hg <8.0 -GI and Hematology consult Code(s): D64.9 - ANEMIA, UNSPECIFIED (3) Decubital ulcer Assessment/Plan: -ID on board -wound culture positive -vascular on board -will need WOUND VAC on discharge -no leukocytosis -afebrile -Santyl -dressing change daily and as needed Code(s): L89.90 - PRESSURE ULCER OF UNSPECIFIED SITE, UNSPECIFIED STAGE Qualifiers: Pressure injury location: unspecified location Pressure injury stage: unspecified pressure injury stage Qualified Code(s): L89.90 - Pressure ulcer of unspecified site, unspecified stage (4) Paraplegia Assessment/Plan: -PT -fall precaution Code(s): G82.20 - PARAPLEGIA, UNSPECIFIED (5) UTI (urinary tract infection), bacterial Assessment/Plan: -no leukocytosis -afebrile -UC positive -ID on board Code(s): N39.0 - URINARY TRACT INFECTION, SITE NOT SPECIFIED; A49.9 - BACTERIAL INFECTION, UNSPECIFIED (6) Postprandial vomiting Assessment/Plan: -IV Zofran and Reglan TID AC -Upper GI Series done Code(s): R11.10 - VOMITING, UNSPECIFIED Assessment/Plan see problem list dvt ppx SNF for discharge
[2019-06-03] MEDS ORDERED: ZOLPIDEM TARTRATE 5 MG TABLET PO ONE (19:57)
[2019-06-04] MEDS: METOCLOPRAMIDE HCL 10 MG TABLET (FP) PO SCH ×3 (06:17→16:50)
[2019-06-04 07:48] LABS: HEMATOCRIT 34.9 % (35.4-49); HEMOGLOBIN 11.1 GM/dL (11.7-16.9); MCH 24.4 pg (25.7-33.7); MCHC 31.8 g/dl (32.0-35.9); MEAN CELL VOLUME 76.7 fl (80-96); MEAN PLT VOLUME 7.3 fl (7.5-11.1); PLATELET COUNT 687 K/MM3 (134-434); RBC 4.55 M/mm3 (4.00-5.60); RDW 17.2 % (11.9-15.9); WHITE BLOOD COUNT 14.5 K/mm3 (4.0-10.0)
[2019-06-04 07:49] LABS: BILIRUBIN,TOTAL 0.2 mg/dL (0.2-1); BLOOD UREA NITROGEN 12.6 mg/dL (7-18); CALCIUM 8.9 mg/dL (8.5-10.1); CREATININE 0.5 mg/dL (0.55-1.3); POTASSIUM 4.3 mmol/L (3.5-5.1); TOT PROT 7.2 g/dl (6.4-8.2)
[2019-06-04] MEDS: HEPARIN NA (PORCINE) 5,000 UNITS/ML 1ML VIAL SQ SCH ×2 (10:14→22:04)
[2019-06-04] MEDS: PANTOPRAZOLE 40 MG TABLET (FP) PO SCH (10:14)
[2019-06-04] MEDS: COLLAGENASE CLOSTRIDIUM HIST. 30 GRAMS TUBE TP SCH (10:15)
--- NOTE | 2019-06-04 11:44 | PN ---
Progress Note, Physician Chief Complaint: R heel Ulcer Nausea History of Present Illness: Previous notes and events reviewed awake and alert NAD denies nausea MRI positive for osteomyelitis leukocytosis wbc 14.5 pending bone biopsy by podiatry - Current Medication List Current Medications: Active Medications Acetaminophen (Tylenol -) 650 mg PO Q6H PRN PRN Reason: FEVER Last Admin: 05/29/19 23:41 Dose: 650 mg Acetaminophen (Ofirmev Injection -) 1,000 mg IVPB Q6H PRN PRN Reason: PAIN 5-10 Last Admin: 05/29/19 12:00 Dose: 1,000 mg Collagenase (Santyl -) 1 applic TP DAILY [facility]; Protocol Last Admin: 06/04/19 10:15 Dose: 1 applic Heparin Sodium (Porcine) (Heparin -) 5,000 unit SQ BID [facility] Last Admin: 06/04/19 10:14 Dose: 5,000 unit Metoclopramide HCl (Reglan -) 5 mg PO TIDAC [facility] Last Admin: 06/04/19 10:14 Dose: 5 mg Ondansetron HCl (Zofran Injection) 8 mg IVPB Q6H PRN PRN Reason: NAUSEA Last Admin: 05/31/19 04:33 Dose: 8 mg Pantoprazole Sodium (Protonix -) 40 mg PO DAILY [facility] Last Admin: 06/04/19 10:14 Dose: 40 mg - Objective Vital Signs: Vital Signs Temperature 98.5 F 06/04/19 06:00 Pulse Rate 67 06/04/19 06:00 Respiratory Rate 20 06/04/19 09:00 Blood Pressure 105/63 06/04/19 06:00 O2 Sat by Pulse Oximetry (%) 98 06/04/19 09:00 Constitutional: Yes: No Distress, Calm Eyes: Yes: Conjunctiva Clear HENT: Yes: Atraumatic Cardiovascular: Yes: Regular Rate and Rhythm Respiratory: Yes: Regular, CTA Bilaterally Gastrointestinal: Yes: Normal Bowel Sounds, Soft Musculoskeletal: Yes: Muscle Weakness Extremities: Yes: WNL Edema: No Wound/Incision: Yes: Dressing Dry and Intact Neurological: Yes: Alert, Oriented Psychiatric: Yes: Alert, Oriented Labs: CBC, BMP 06/04/19 06:40 06/04/19 06:40 INR, PTT INR 1.24 (0.83-1.09) H 05/28/19 13:50 Microbiology 05/28/19 13:50 Blood - Peripheral Venous Blood Culture - Final NO GROWTH AFTER 5 DAYS INCUBATION 05/28/19 13:50 Blood - Peripheral Venous Blood Culture - Final NO GROWTH AFTER 5 DAYS INCUBATION 05/28/19 17:00 Buttock - Right Gram Stain - Final 05/28/19 17:00 Buttock - Right Wound Culture - Final Proteus Mirabilis Beta Hem Streptococcus Group C 05/28/19 15:33 Urine - Urine Prabhakar Urine Culture - Final Citrobacter Farmeri Morganella Morganii Problem List - Problems (1) Ulcer of right heel Assessment/Plan: -MRI shows osteomyelitis of the posterior aspect of calcaneus, there is cellulitis and no soft tissue abscess -ID on board -will need PICC line placement for assisted antibiotic therapy -podiatry on board--will do bone biopsy for ID of bacteria for ABT use Code(s): L97.419 - NON-PRS CHR ULCER OF RIGHT HEEL AND MIDFOOT W UNSP SEVERT (2) Anemia Assessment/Plan: -Hg 11.1 -monitor Hg daily -transfuse for Hg <8.0 -GI and Hematology consult Code(s): D64.9 - ANEMIA, UNSPECIFIED (3) Decubital ulcer Assessment/Plan: -ID on board -wound culture positive -vascular on board -will need WOUND VAC on discharge -leukocytosis 14.5 -afebrile -Santyl -dressing change daily and as needed Code(s): L89.90 - PRESSURE ULCER OF UNSPECIFIED SITE, UNSPECIFIED STAGE Qualifiers: Pressure injury location: unspecified location Pressure injury stage: unspecified pressure injury stage Qualified Code(s): L89.90 - Pressure ulcer of unspecified site, unspecified stage (4) Paraplegia Assessment/Plan: -PT -fall precaution Code(s): G82.20 - PARAPLEGIA, UNSPECIFIED (5) UTI (urinary tract infection), bacterial Assessment/Plan: -leukocytosis wbc 14.5 -afebrile -UC positive -ID on board Code(s): N39.0 - URINARY TRACT INFECTION, SITE NOT SPECIFIED; A49.9 - BACTERIAL INFECTION, UNSPECIFIED (6) Postprandial vomiting Assessment/Plan: -IV Zofran and Reglan TID AC -Upper GI Series done -resolved Code(s): R11.10 - VOMITING, UNSPECIFIED Assessment/Plan see problem list dvt ppx SNF for discharge for assisted antibiotic use
[2019-06-04] MEDS ORDERED: LIDOCAINE HCL 1%, 10 MG/ML (20ML VIAL) ONE (12:06)
--- NOTE | 2019-06-04 12:22 | OP ---
Operative Note - Note: Operative Date: 06/04/19 Pre-Operative Diagnosis: osteomyelitis right heel Operation: bone biopsy / culture right heel bedside under sterile technique Findings: soft bone Post-Operative Diagnosis: Same as Pre-op Surgeon: Noemy Babb Anesthesia: Local Specimens Removed: bone Estimated Blood Loss (mls): 5 Instrument used (Debridements only): trochar and blade Operative Report Dictated: No
[2019-06-04] MEDS ORDERED: traMADol HCL 50 MG TABLET PO ONE (12:35)
--- NOTE | 2019-06-04 15:58 | PN ---
Progress Note (short form) - Note Progress Note: s/p bone biopsy of heel for osteo today Vital Signs Period Temp Pulse Resp BP Sys/Casas Pulse Ox Last 24 Hr 97.9 F-98.5 F 57-67 18-20 105-125/50-71 98-98 cor-rrr lungs clear abd soft,nt ext dressings intact CBC, BMP 06/04/19 06:40 06/04/19 06:40 Microbiology 06/04/19 12:20 Foot - Right Heel Gram Stain - Final 05/28/19 13:50 Blood - Peripheral Venous Blood Culture - Final NO GROWTH AFTER 5 DAYS INCUBATION 05/28/19 13:50 Blood - Peripheral Venous Blood Culture - Final NO GROWTH AFTER 5 DAYS INCUBATION 05/28/19 17:00 Buttock - Right Gram Stain - Final 05/28/19 17:00 Buttock - Right Wound Culture - Final Proteus Mirabilis Beta Hem Streptococcus Group C 05/28/19 15:33 Urine - Urine Prabhakar Urine Culture - Final Citrobacter Farmeri Morganella Morganii Laboratory Tests 05/29/19 06/03/19 08:25 06:30 C-Reactive Protein 16.3 H 1.9 H a/p osteomyelitis of the heel fevers resolved paraplegia pen allergy noted reviewed records from 2015- tolerated cefepime willl resumve vanco/cefepime while awaiting culture results microcytic anemia-denies rectal bleeding, occasional bleeding (rare) from his ulcers GI and heme f/u noted
[2019-06-04] MEDS: VANCOMYCIN 1 GRAM (PRE-DOCKED) 1,000 MG/250 ML BAG IVPB SCH (16:40)
[2019-06-04] MEDS ORDERED: CEFEPIME HCL 1 GM VIAL (RESTRICTED TO ID) ONE (16:53)
[2019-06-04] MEDS ORDERED: DEXTROSE 5%-WATER - 50 ML IVPB ONE (16:53)
[2019-06-04 17:06] LABS: HGB SOLUBILITY Negative (Negative); Hgb C 0 % (0.0); Hgb F 0 % (0.0-2.0); Hgb S 0 % (0.0)
[2019-06-04] MEDS: CEFEPIME 1 GM in DEXTROSE 5%-WATER - 50 ML IVPB SCH (18:37)
[2019-06-04] MEDS ORDERED: ZOLPIDEM TARTRATE 5 MG TABLET PO ONE (20:24)
[2019-06-05] MEDS ORDERED: DEXTROSE 5%-WATER - 50 ML IVPB ONE ×2 (02:20→10:08)
[2019-06-05] MEDS ORDERED: CEFEPIME HCL 1 GM VIAL (RESTRICTED TO ID) ONE ×2 (02:20→10:08)
[2019-06-05] MEDS: CEFEPIME 1 GM in DEXTROSE 5%-WATER - 50 ML IVPB SCH ×2 (02:28→10:13)
[2019-06-05] MEDS: VANCOMYCIN 1 GRAM (PRE-DOCKED) 1,000 MG/250 ML BAG IVPB SCH (03:18)
[2019-06-05] MEDS: METOCLOPRAMIDE HCL 10 MG TABLET (FP) PO SCH ×3 (07:04→17:46)
[2019-06-05 08:30] LABS: HEMOGLOBIN 11.3 GM/dL (11.7-16.9); MCH 24.6 pg (25.7-33.7); MCHC 32.2 g/dl (32.0-35.9); MEAN CELL VOLUME 76.4 fl (80-96); MEAN PLT VOLUME 7.1 fl (7.5-11.1); PLATELET COUNT 666 K/MM3 (134-434); RBC 4.59 M/mm3 (4.00-5.60); RDW 17.5 % (11.9-15.9); WHITE BLOOD COUNT 14.6 K/mm3 (4.0-10.0)
[2019-06-05 09:08] LABS: ALBUMIN 3.2 g/dl (3.4-5.0); BILIRUBIN,TOTAL 0.3 mg/dL (0.2-1); BLOOD UREA NITROGEN 13.2 mg/dL (7-18); CALCIUM 9.4 mg/dL (8.5-10.1); CREATININE 0.5 mg/dL (0.55-1.3); POTASSIUM 4.5 mmol/L (3.5-5.1); TOT PROT 7.2 g/dl (6.4-8.2)
[2019-06-05] MEDS: HEPARIN NA (PORCINE) 5,000 UNITS/ML 1ML VIAL SQ SCH (10:12)
[2019-06-05] MEDS: PANTOPRAZOLE 40 MG TABLET (FP) PO SCH (10:13)
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
[2019-06-05] MEDS ORDERED: ALPRAZolam 0.25 MG TABLET PO STA (14:48)
[2019-06-05 14:52] VITALS: BP 107/54; PULSE 70; TEMP 98.8
[2019-06-05] MEDS: COLLAGENASE CLOSTRIDIUM HIST. 30 GRAMS TUBE TP SCH (14:57)
--- NOTE | 2019-06-05 15:13 | PN ---
Progress Note (short form) - Note Progress Note: s/p bone biopsy of heel for osteo yesterday cultures and pathology pending Vital Signs Period Temp Pulse Resp BP Sys/Casas Pulse Ox Last 24 Hr 98.7 F-99.3 F 59-70 17-20 105-110/54-60 98 cor-rrr lungs clear abd soft,nt dressing on ankle a/p osteomyelitis of the heel fevers resolved paraplegia pen allergy noted reviewed records from 2015- tolerated cefepime d/w dr wheatley d/w patient- will continue vanco/cefepime- I will call SNF on Saturday (dr valencia ) to f/u on cultures and adjust antibiotics as needed wound care per podiatry and surgery microcytic anemia-denies rectal bleeding, occasional bleeding (rare) from his ulcers GI and heme f/u noted
--- NOTE | 2019-06-05 15:24 | PATH ---
Surgical Pathology Report Patient Name: GUALBERTO MURPHY [facility]. Rec. #: [id number] /Age/Gender: 1995 (Age: 24) / M Account: [id number] Location: [address] [place] [address]/[facility] Taken: 06/04/2019 Received: 06/04/2019 Reported: 06/05/2019 Physicians: Moon Graf M.D. Specimen(s) Received BONE RIGHT HEEL Clinical History Osteomyelitis right Final Diagnosis BONE, RIGHT HEEL, BIOPSY: PORTION OF BONE, NEGATIVE FOR OSTEOMYELITIS. Electronically Signed Jimena Bello M.D. Gross Description Received in formalin, labeled "bone right heel" is a portion of cylindrical bone measuring 0.8 cm and 0.1 cm in aggregate. Entirely submitted one cassette for decalcification. DAE/06/04/2019 jean/06/04/2019
[2019-06-05] MEDS ORDERED: CEFEPIME 2 GM in DEXTROSE 5%-WATER 100 ML IVPB SCH (22:00)
== END 2019-06-05 20:16 | DRG 853 ==
LOC: JER 13:11 → JERBED 15:48 → J6S 18:37
PROVIDERS: ADMIT Student in an Organized Health Care Education/Training Program; ATTEND Student in an Organized Health Care Education/Training Program
PROC: 0HBRXZZ Excision of Toe Nail, External Approach (ICD-10-PCS; principal; 2019-06-02)
PROC: 0HBRXZZ Excision of Toe Nail, External Approach (ICD-10-PCS; 2019-06-02)
PROC: 0HBRXZZ Excision of Toe Nail, External Approach (ICD-10-PCS; 2019-06-02)
PROC: 0HBRXZZ Excision of Toe Nail, External Approach (ICD-10-PCS; 2019-06-02)
PROC: 0HBRXZZ Excision of Toe Nail, External Approach (ICD-10-PCS; 2019-06-02)
PROC: 0HBRXZZ Excision of Toe Nail, External Approach (ICD-10-PCS; 2019-06-02)
PROC: 0HBRXZZ Excision of Toe Nail, External Approach (ICD-10-PCS; 2019-06-02)
PROC: 0HBRXZZ Excision of Toe Nail, External Approach (ICD-10-PCS; 2019-06-02)
PROC: 0HBRXZZ Excision of Toe Nail, External Approach (ICD-10-PCS; 2019-06-02)
PROC: 0HBRXZZ Excision of Toe Nail, External Approach (ICD-10-PCS; 2019-06-02)
PROC: 0QBL0ZX Excision of Right Tarsal, Open Approach, Diagnostic (ICD-10-PCS; 2019-06-04)
PROC: 02HV33Z Insertion of Infusion Device into Superior Vena Cava, Percutaneous Approach (ICD-10-PCS; 2019-06-05)
PROC: B518ZZA Fluoroscopy of Superior Vena Cava, Guidance (ICD-10-PCS; 2019-06-05)
DX: A41.89 Other specified sepsis (principal); L89.324 Pressure ulcer of left buttock, stage 4; L89.314 Pressure ulcer of right buttock, stage 4; N39.0 Urinary tract infection, site not specified; G82.20 Paraplegia, unspecified; M86.8X7 Other osteomyelitis, ankle and foot; L03.115 Cellulitis of right lower limb; D72.828 Other elevated white blood cell count; N31.8 Other neuromuscular dysfunction of bladder; R00.0 Tachycardia, unspecified; D64.9 Anemia, unspecified; I45.10 Unspecified right bundle-branch block; B95.4 Other streptococcus as the cause of diseases classified elsewhere; B96.4 Proteus (mirabilis) (morganii) as the cause of diseases classified elsewhere; S22.069D Unspecified fracture of T7-T8 vertebra, subsequent encounter for fracture with routine healing; S22.088D Other fracture of T11-T12 vertebra, subsequent encounter for fracture with routine healing; S22.068D Other fracture of T7-T8 thoracic vertebra, subsequent encounter for fracture with routine healing; S22.078D Other fracture of T9-T10 vertebra, subsequent encounter for fracture with routine healing; L89.622 Pressure ulcer of left heel, stage 2; L89.612 Pressure ulcer of right heel, stage 2; Z88.0 Allergy status to penicillin; R11.10 Vomiting, unspecified; B35.1 Tinea unguium; Z99.3 Dependence on wheelchair; Z74.01 Bed confinement status
CPT/HCPCS: 36415; 36569; 71045-TC-FY; 73630-TC-RT-FY; 73723-TC; 74019-TC-FY; 74220-TC-FY; 74240-TC-FY; 77001-TC-FY; 80048; 80053; 80076; 81003; 82728; 83021; 83540; 83550; 83605; 83615; 83690; 83735; 84484; 85025; 85027; 85044; 85610; 85651; 85660; 85730; 86140; 87040; 87070; 87086; 87186; 87205; 87338; 88304-TC; 88311-TC; 93005; 93010; 97161-GP; 99283-25; A9579; C1751; G0480; J0131; J1439; J1644; J1756; J7030; Q0162

== ENCOUNTER 2024-08-08 09:49 | Observation (INO) | payer OTHER ==
[2024-08-08] MEDS ORDERED: ACETAMINOPHEN 325 MG TABLET (FP) PO PRN ×2 (10:04→14:15)
[2024-08-08 13:18] VITALS: BMI 18.6
[2024-08-08] MEDS: ALPRAZolam 1 MG TABLET PO PRN (13:36)
[2024-08-08] MEDS: DOXYCYCLINE HYCLATE 100 MG CAPSULE PO SCH (17:12)
[2024-08-08] MEDS: oxyCODONE HCL 5 MG TABLET PO PRN (18:03)
[2024-08-08] MEDS: CELECOXIB 100 MG CAPSULE PO SCH (22:17)
[2024-08-08] MEDS: HEPARIN NA (PORCINE) 5,000 UNITS/ML 1ML VIAL SQ SCH (22:17)
[2024-08-09] MEDS: ZINC SULFATE 220 MG CAPSULE (FP) PO SCH (09:13)
[2024-08-09] MEDS: MULTIVITAMINS (DAILY MVI) TABLET (FP) PO SCH (09:13)
[2024-08-09] MEDS: AMINO ACIDS/PROTEIN HYDROLYS 30 ML LIQUID.PKT PO SCH (09:14)
[2024-08-09] MEDS: ASCORBIC ACID 250 MG TABLET (FP) PO SCH (09:14)
[2024-08-09] MEDS: oxyCODONE HCL 5 MG TABLET PO PRN (12:25)
[2024-08-10 14:47] VITALS: BP 123/67; PULSE 64; RESP 18; TEMP 98.6
[2024-08-10] MEDS ORDERED: AMINO ACIDS/PROTEIN HYDROLYS 30 ML LIQUID.PKT PO SCH (17:30)
== END 2024-08-10 17:15 | disposition home or self-care (01) ==
LOC: JER 09:49 → JERBED 10:04 → J8W 11:52 → J7W 12:27
PROVIDERS: ADMIT Internal Medicine
DX: Z02.2 Encounter for examination for admission to residential institution (principal); G82.20 Paraplegia, unspecified; F41.9 Anxiety disorder, unspecified; R32 Unspecified urinary incontinence; L89.90 Pressure ulcer of unspecified site, unspecified stage; N31.9 Neuromuscular dysfunction of bladder, unspecified
CPT/HCPCS: 99285-25; G0378; J1644